=== PATIENT | female | born 1980 | race American Indian/Alaskan Native ===

== ENCOUNTER 2017-01-03 17:20 | Emergency (ER) | payer SELFPAY ==
[2017-01-03] MEDS ORDERED: CATAPRES PO ONE (19:42)
[2017-01-03] MEDS ORDERED: CATAPRES ONE (19:42)
[2017-01-03 19:48] LABS: Basophils % (Auto) 0.7 % (0.0-1.8); Eosinophils % (Auto) 2.5 % (0.0-4.3); Hematocrit 36.6 % (30.3-42.9); Hemoglobin 12.2 gm/dl (10.1-14.3); Mean Corpuscular HGB Conc 33 % (30-34); Mean Corpuscular Hemoglobin 32 pg (28-32); Mean Corpuscular Volume 94 fl (79-97); Platelet Count 245 K/mm3 (140-440); Red Blood Count 3.88 M/mm3 (3.65-5.03); Red Cell Distribution Width 13.7 % (13.2-15.2); White Blood Count 6.9 K/mm3 (4.5-11.0)
[2017-01-03 20:11] LABS: Anion Gap 16 mmol/L; BUN/Creatinine Ratio 21.66; Blood Urea Nitrogen 13 mg/dL (7-17); Calcium 8.9 mg/dL (8.4-10.2); Carbon Dioxide 26 mmol/L (22-30); Chloride 102.8 mmol/L (98-107); Creatine Kinase 179 units/L (30-135); Glucose 92 mg/dL (65-100); Potassium 3.7 mmol/L (3.6-5.0); Sodium 141 mmol/L (137-145)
[2017-01-03 20:34] LABS: Bilirubin,Urine NEG (Negative); Blood,Urine NEG (Negative); Ketones,Urine NEG (Negative); Leukocyte Esterase,Urine NEG (Negative); Mucus,Urine 2+ /HPF; Nitrite,Urine NEG (Negative)
--- NOTE | 2017-01-04 01:03 | XRay Report ---
FINAL REPORT PROCEDURE: XR CHEST ROUTINE 2V TECHNIQUE: PA and lateral chest radiographs were obtained. CPT 69974 HISTORY: HTN, chest pain COMPARISON: No prior studies are available for comparison. FINDINGS: Heart: Normal. Mediastinum/Vessels: Normal. Lungs/Pleural space: Normal. Bony thorax: No acute osseous abnormality. Other: IMPRESSION: Normal examination.
--- NOTE | 2017-01-04 01:36 | Cat Scan Report ---
FINAL REPORT PROCEDURE: CT HEAD/BRAIN WO CON TECHNIQUE: Computerized tomography of the head was performed without contrast material. HISTORY: headache, HTN COMPARISON: No prior studies are available for comparison. FINDINGS: Skull and scalp: Normal. Paranasal sinuses: Normal. Ventricles and subarachnoid spaces: Normal. Cerebrum: No evidence of hemorrhage, acute infarction or mass . Cerebellum and brainstem: No evidence of hemorrhage, acute infarction or mass. Vasculature: Normal. Comments: None. IMPRESSION: There is no evidence of an acute intracranial process
--- NOTE | 2017-01-04 01:51 | Emergency Department Report ---
ED General Adult HPI - General Chief complaint: High BP Stated complaint: HIGH BLOOD PRESSURE,ABDOMINAL PAIN Time Seen by Provider: 01/04/17 00:52 Source: patient Mode of arrival: Ambulatory Limitations: No Limitations - History of Present Illness Initial comments: 36-year-old female past medical history smoker, preeclampsia, migraines presents with complaint of approximately 2 months of throbbing anterior headache. Also states she occasionally gets body aches. Denies fevers chills nausea or vomiting, denies paresthesias, shortness of breath, chest pain, palpitations. Occasional blurry vision. States she occasionally gets brief abdominal aching, has not had it in 2 weeks. Patient is awake alert and oriented 3 does not appear to be in acute distress. Patient states that she has had high blood pressure today. Onset/Timin -: month(s) Location: head Radiation: non-radiation Severity scale (0 -10): 8 Improves with: none Worsens with: none Associated Symptoms: headaches - Related Data Previous Rx's Medication Instructions Recorded Last Taken Type Acetaminophen [Acetaminophen TAB] 500 mg PO Q6HR PRN #30 tablet 01/04/17 Unknown Rx amLODIPine [Norvasc] 5 mg PO DAILY #30 tab 01/04/17 Unknown Rx Allergies Allergy/AdvReac Type Severity Reaction Status Date / Time No Known Allergies Allergy Verified 01/03/17 19:21 ED Review of Systems ROS: Stated complaint: HIGH BLOOD PRESSURE,ABDOMINAL PAIN Other details as noted in HPI ED Past Medical Hx - Past Medical History Previous Medical History?: Yes Hx Hypertension: Yes Additional medical history: ANEMIA / PRE-ECLAMPSIA - Surgical History Past Surgical History?: Yes Additional Surgical History: TUBAL LIGATION / C SECTION X 1 - Social History Smoking Status: Current Every Day Smoker Substance Use Type: Alcohol - Medications Home Medications: Home Medications Medication Instructions Recorded Confirmed Last Taken Type Acetaminophen [Acetaminophen TAB] 500 mg PO Q6HR PRN #30 tablet 01/04/17 Unknown Rx amLODIPine [Norvasc] 5 mg PO DAILY #30 tab 01/04/17 Unknown Rx ED Physical Exam - General Limitations: No Limitations General appearance: alert, in no apparent distress - Head Head exam: Present: atraumatic, normocephalic - Eye Eye exam: Present: normal appearance, PERRL, EOMI - ENT ENT exam: Present: mucous membranes moist - Neck Neck exam: Present: normal inspection, full ROM - Respiratory Respiratory exam: Present: normal lung sounds bilaterally. Absent: respiratory distress - Cardiovascular Cardiovascular Exam: Present: regular rate, normal rhythm. Absent: systolic murmur, diastolic murmur, rubs, gallop - GI/Abdominal GI/Abdominal exam: Present: soft (abdomen soft nontender nondistended all 4 quadrants), normal bowel sounds - Extremities Exam Extremities exam: Present: normal inspection - Back Exam Back exam: Present: normal inspection - Neurological Exam Neurological exam: Present: alert, oriented X3, CN II-XII intact, normal gait - Expanded Neurological Exam Expanded Patient oriented to: Present: person, place, time Cerebellar function: Finger to Nose: Normal, Heel to [place]: Normal, Romberg: Normal Sensory exam: Upper Extremity Light Touch: Normal, Lower Extremity Light Touch: Normal Motor strength exam: RUE: 5, LUE: 5, RLE: 5, LLE: 5 DTR: tricep (R): 3+, tricep (L): 3+, knee (R): 3+, knee (L): 3+ Best Eye Response ([place]): (4) open spontaneously Best Motor Response ([place]): (6) obeys commands Best Verbal Response ([place]ricia): (5) oriented [place] Total: 15 - Psychiatric Psychiatric exam: Present: normal affect, normal mood - Skin Skin exam: Present: warm, dry, intact, normal color. Absent: rash ED Course Vital Signs 01/03/17 01/03/17 01/03/17 19:15 19:21 19:56 Temperature 98.1 F 98.1 F Pulse Rate 80 Respiratory 18 18 Rate Blood Pressure 182/119 182/119 182/119 Blood Pressure [Right] O2 Sat by Pulse 100 Oximetry 01/03/17 01/03/17 21:22 23:05 Temperature 97.8 F Pulse Rate 80 61 Respiratory 16 Rate Blood Pressure Blood Pressure 163/111 145/94 [Right] O2 Sat by Pulse 100 Oximetry ED Medical Decision Making - Lab Data Result diagrams: 01/03/17 19:36 01/03/17 19:36 - Medical Decision Making A/P: Hypertension uncontrolled, anxiety 1-patient referred to primary medical doctor 2-lab unremarkable, EKG sinus rhythm, CXR WNL, will start patient on low-dose amlodipine and advised her to check her BP , decrease salt in diet and f/u with PMD. 3-patient has no current shortness of breath palpitations chest pain abdominal pain nausea vomiting paresthesias in the upper or lower extremities blurry vision and headache is minor 4-cranial nerves I through XII grossly intact, patient is awake alert and oriented 3, fully ambulatory without assistance. No overt neurological deficits on clinical exam Critical care attestation.: If time is entered above; I have spent that time in minutes in the direct care of this critically ill patient, excluding procedure time. ED Disposition Clinical Impression: Hypertension Qualifiers: Hypertension type: unspecified Qualified Code(s): I10 - Essential (primary) hypertension Disposition: TO HOME OR SELFCARE Is pt being admited?: No Does the pt Need Aspirin: No Condition: Stable Instructions: Hypertension (ED), Migraine Headache (ED) Prescriptions: Acetaminophen [Acetaminophen TAB] 500 mg PO Q6HR PRN #30 tablet PRN Reason: Headache amLODIPine [Norvasc] 5 mg PO DAILY #30 tab Referrals: [facility] [Outside] - 3-5 Days [facility] [Outside] - 3-5 Days Forms: Accompanied Note, Work/School Release Form(ED) Time of Disposition: 01:55
[2017-01-04 02:15] VITALS: BP 162/91
== END 2017-01-04 02:14 | disposition home or self-care (01) ==
LOC: ED 17:20
DX: I10 Essential (primary) hypertension (principal); R10.9 Unspecified abdominal pain; F17.210 Nicotine dependence, cigarettes, uncomplicated
CPT/HCPCS: 36415; 70450; 71020; 80048; 81001; 82550; 84484; 84703; 85025; 93005; 93010; 99284